=== PATIENT | male | born 1935 | race Caucasian/White ===

== ENCOUNTER 2018-07-02 01:25 | Inpatient (IN) | payer MEDICARE, MEDICAID ==
[~2018-07-02] VITALS: Ht 165.1 cm; Wt 90.8 kg
[2018-07-02] MEDS ORDERED: ONDANSETRON HCL 4MG/2ML INJ IV STA (03:55)
[2018-07-02] MEDS ORDERED: SODIUM CHLORIDE 0.9% 1,000 ML IV ONE (03:55)
[2018-07-02 04:18] LABS: CHLORIDE 105 mEq/L (98-107); HEMATOCRIT. 34.6 % (42.0-52.0); HEMOGLOBIN. 11.3 g/dL (14.0-18.0); MEAN PLATELET VOLUME 8.4 fl (7.4-10.4); PLATELET 295 x1000/uL (130-400); RED BLOOD CELL COUNT 3.89 mill/uL (4.7-6.1); RED CELL DISTRIBUTION WIDTH 13.5 % (11.6-14.6)
[2018-07-02] MEDS ORDERED: DEXTROSE 50% WATER 50ML SYRINGE IV ONE (04:45)
[2018-07-02 04:57] LABS: PLATELET ESTIMATE NORMAL
[2018-07-02] MEDS ORDERED: IOHEXOL-300 100 ML BOTTLE ONE (06:45)
[2018-07-02] MEDS ORDERED: LACTULOSE 20G/30ML UDC PO PRN (09:00)
[2018-07-02] MEDS ORDERED: SODIUM POLYSTYRENE SULFONATE 15 G/60 ML BOT PO NR (09:00)
[2018-07-02] MEDS ORDERED: ACETAMINOPHEN 325MG TABLET PO PRN (09:00)
[2018-07-02] MEDS ORDERED: ONDANSETRON HCL 4MG/2ML INJ IV PRN (09:00)
[2018-07-02] MEDS: DOCUSATE SODIUM 250MG CAPSULE PO SCH ×2 (10:15→11:58)
[2018-07-02 11:50] VITALS: BP 131/57
[2018-07-02] MEDS: CLOPIDOGREL 75MG TABLET PO SCH (11:58)
[2018-07-02 12:00] VITALS: BP 160/65
[2018-07-02] MEDS: BLOOD SUGAR DIAGNOSTIC STRIP TEST SCH ×3 (12:10→21:00)
[2018-07-02 16:00] VITALS: BP 108/42
[2018-07-02] MEDS: DEXT 5%/0.45% NACL 1000ML 1,000 ML IV SCH (19:02)
[2018-07-02 20:00] VITALS: BP 132/52
[2018-07-02] MEDS ORDERED: ZOLPIDEM TARTRATE 5MG TABLET PO PRN (23:00)
[2018-07-02] MEDS: TAMSULOSIN HCL 0.4MG SR CAPSULE PO SCH (23:54)
[2018-07-03] VITALS: BP 136/67
[2018-07-03 04:00] VITALS: BP 132/59
[2018-07-03] MEDS: BLOOD SUGAR DIAGNOSTIC STRIP TEST SCH ×3 (07:29→21:00)
[2018-07-03 07:36] LABS: BASOPHILS % 0.2 % (0.0-2.0); HEMATOCRIT. 30.4 % (42.0-52.0); HEMOGLOBIN. 10.3 g/dL (14.0-18.0); LYMPHOCYTES % 17.6 % (20.0-50.0); MEAN CORPUSCULAR HEMOGLOBIN 29.8 pg (28.0-32.0); MEAN CORPUSCULAR VOLUME 87.7 fL (80.0-94.0); MEAN PLATELET VOLUME 7.7 fl (7.4-10.4); MONOCYTES % 7.4 % (2.0-8.0); NEUTROPHILS % 73.8 % (40.0-76.0); PLATELET 269 x1000/uL (130-400); RED BLOOD CELL COUNT 3.47 mill/uL (4.7-6.1); RED CELL DISTRIBUTION WIDTH 13.5 % (11.6-14.6)
[2018-07-03 07:45] LABS: CHLORIDE 106 mEq/L (98-107)
[2018-07-03 08:00] VITALS: BP 115/48
[2018-07-03] MEDS: DOCUSATE SODIUM 250MG CAPSULE PO SCH (09:30)
[2018-07-03] MEDS: CLOPIDOGREL 75MG TABLET PO SCH (09:30)
[2018-07-03] MEDS ORDERED: NA PHOS,M-B/NA PHOS,DI-BA ENEMA 118ML PR PRN (11:45)
[2018-07-03 16:00] VITALS: BP 115/53
[2018-07-03 16:09] LABS: CLARITY URINE CLOUDY (CLEAR); COLOR URINE YELLOW (YELLOW); KETONES URINE NEGATIVE (NEGATIVE); LEUKOCYTE ESTERASE URINE NEGATIVE (NEGATIVE); NITRITE URINE POSITIVE (NEGATIVE); OCCULT BLOOD URINE 1+ (NEGATIVE); PROTEIN URINE TRACE (NEGATIVE); SPECIFIC GRAVITY URINE 1.027 (1.005-1.030)
[2018-07-03 20:00] VITALS: BP 119/58
[2018-07-03] MEDS: TAMSULOSIN HCL 0.4MG SR CAPSULE PO SCH (23:59)
[2018-07-04] VITALS (7 sets, daily range): BP systolic 114–149; BP diastolic 45–58
[2018-07-04] MEDS: BLOOD SUGAR DIAGNOSTIC STRIP TEST SCH ×4 (05:18→21:18)
[2018-07-04] MEDS: DEXT 5%/0.45% NACL 1000ML 1,000 ML IV SCH ×2 (05:56→13:30)
[2018-07-04] MEDS: CLOPIDOGREL 75MG TABLET PO SCH (08:20)
[2018-07-04] MEDS: DOCUSATE SODIUM 250MG CAPSULE PO SCH (08:22)
[2018-07-04] MEDS: TAMSULOSIN HCL 0.4MG SR CAPSULE PO SCH (21:18)
[2018-07-05 04:00] VITALS: BP 149/80
[2018-07-05] MEDS: BLOOD SUGAR DIAGNOSTIC STRIP TEST SCH ×4 (06:39→20:40)
[2018-07-05 08:00] VITALS: BP 133/48
[2018-07-05] MEDS: DOCUSATE SODIUM 250MG CAPSULE PO SCH (09:00)
[2018-07-05] MEDS: CLOPIDOGREL 75MG TABLET PO SCH (09:32)
[2018-07-05 12:00] VITALS: BP 142/62
[2018-07-05] MEDS ORDERED: DEXTROSE 50% WATER 50ML SYRINGE IV PRN (14:15)
[2018-07-05 16:00] VITALS: BP 123/61
[2018-07-05] MEDS: INSULIN LISPRO 100 UNITS/ML SUBCUT SCH ×2 (17:34→21:51)
[2018-07-05 20:00] VITALS: BP 117/53
[2018-07-05] MEDS: TAMSULOSIN HCL 0.4MG SR CAPSULE PO SCH (21:42)
[2018-07-06] VITALS: BP 128/57
[2018-07-06 04:00] VITALS: BP 122/57
[2018-07-06] MEDS: BLOOD SUGAR DIAGNOSTIC STRIP TEST SCH ×4 (06:27→20:35)
[2018-07-06] MEDS: INSULIN LISPRO 100 UNITS/ML SUBCUT SCH ×4 (06:42→21:00)
[2018-07-06 08:00] VITALS: BP 127/55
[2018-07-06] MEDS: CLOPIDOGREL 75MG TABLET PO SCH (09:00)
[2018-07-06] MEDS: DOCUSATE SODIUM 250MG CAPSULE PO SCH (09:00)
[2018-07-06 12:00] VITALS: BP 110/50
[2018-07-06 16:00] VITALS: BP 128/55
[2018-07-06 20:00] VITALS: BP 139/63
[2018-07-06] MEDS: TAMSULOSIN HCL 0.4MG SR CAPSULE PO SCH (20:34)
[2018-07-07 05:59] VITALS: BP 107/50
[2018-07-07] MEDS: BLOOD SUGAR DIAGNOSTIC STRIP TEST SCH ×4 (06:33→21:07)
[2018-07-07] MEDS: INSULIN LISPRO 100 UNITS/ML SUBCUT SCH ×4 (06:39→21:14)
[2018-07-07 08:00] VITALS: BP 110/55
[2018-07-07] MEDS: DOCUSATE SODIUM 250MG CAPSULE PO SCH (08:26)
[2018-07-07] MEDS: CLOPIDOGREL 75MG TABLET PO SCH (08:26)
[2018-07-07 12:00] VITALS: BP 133/49
[2018-07-07 16:00] VITALS: BP_SYST 116; BP_DIAS 59; BP_DIAS 89
[2018-07-07 20:00] VITALS: BP 139/57
[2018-07-07] MEDS: TAMSULOSIN HCL 0.4MG SR CAPSULE PO SCH (21:16)
[2018-07-08] VITALS (7 sets, daily range): BP systolic 107–136; BP diastolic 52–56
[2018-07-08 06:39] LABS: BASOPHILS % 0.3 % (0.0-2.0); CHLORIDE 111 mEq/L (98-107); EOSINOPHILS % 1.9 % (0.0-5.0); HEMOGLOBIN. 9.4 g/dL (14.0-18.0); LYMPHOCYTES % 16.8 % (20.0-50.0); MEAN CORPUSCULAR HEMOGLOBIN 29.8 pg (28.0-32.0); MEAN CORPUSCULAR VOLUME 88.5 fL (80.0-94.0); MEAN PLATELET VOLUME 7.7 fl (7.4-10.4); MONOCYTES % 6.1 % (2.0-8.0); NEUTROPHILS % 74.9 % (40.0-76.0); PLATELET 339 x1000/uL (130-400); RED BLOOD CELL COUNT 3.16 mill/uL (4.7-6.1); RED CELL DISTRIBUTION WIDTH 13.6 % (11.6-14.6)
[2018-07-08] MEDS: BLOOD SUGAR DIAGNOSTIC STRIP TEST SCH ×3 (06:46→17:21)
[2018-07-08] MEDS: INSULIN LISPRO 100 UNITS/ML SUBCUT SCH ×4 (06:47→17:21)
[2018-07-08] MEDS: CLOPIDOGREL 75MG TABLET PO SCH (09:32)
[2018-07-08] MEDS: DOCUSATE SODIUM 250MG CAPSULE PO SCH (09:32)
== END 2018-07-08 22:15 | DRG 388 ==
LOC: ER 01:25 → 8WST 01:26 → EDBEDREQ 05:46 → EDBEDREQTM 05:46 → ENRESERV 07:41
PROVIDERS: ADMIT Internal Medicine; ATTEND Internal Medicine
DX: K56.41 Fecal impaction (principal); G93.41 Metabolic encephalopathy; N13.8 Other obstructive and reflux uropathy; E11.649 Type 2 diabetes mellitus with hypoglycemia without coma; E87.5 Hyperkalemia; I10 Essential (primary) hypertension; E66.9 Obesity, unspecified; Z68.33 Body mass index [BMI] 33.0-33.9, adult; N40.1 Benign prostatic hyperplasia with lower urinary tract symptoms; F03.90 Unspecified dementia, unspecified severity, without behavioral disturbance, psychotic disturbance, mood disturbance, and anxiety; D64.9 Anemia, unspecified; N28.1 Cyst of kidney, acquired; K57.90 Diverticulosis of intestine, part unspecified, without perforation or abscess without bleeding; N43.3 Hydrocele, unspecified; I25.2 Old myocardial infarction; Z86.73 Personal history of transient ischemic attack (TIA), and cerebral infarction without residual deficits; Z79.02 Long term (current) use of antithrombotics/antiplatelets; Z90.49 Acquired absence of other specified parts of digestive tract
CPT/HCPCS: 36415; 71045; 73130; 74177; 80048; 80061; 82962; 83036; 83605; 84484; 93005; 93306; 96374; 97162; 99291; J1815; J2405; J7030; Q9967

== ENCOUNTER 2020-08-23 11:35 | Inpatient (IN) | payer MEDICARE, MEDICAID ==
[~2020-08-23] VITALS: Ht 160 cm; Wt 93.7 kg
[~2020-08-23 11:35] MED LIST: CLON-457 PO; CLOP-31 PO; FINA1TAB18 PO; FURO20TA4 PO; GABA-529 PO; LINA5TAB PO; LOSA100T32 PO; TAMS-11 PO
[2020-08-23] MEDS ORDERED: SODIUM CHLORIDE 0.9% 1,000 ML IV ONE (11:45)
[2020-08-23 11:59] LABS: BASOPHILS % 1.3 % (0.0-2.0); EOSINOPHILS % 0.5 % (0.0-5.0); HEMATOCRIT. 34.6 % (42.0-52.0); HEMOGLOBIN. 11.5 g/dL (14.0-18.0); LYMPHOCYTES % 20.2 % (20.0-50.0); MEAN CORPUSCULAR HEMOGLOBIN 30.6 pg (28.0-32.0); MEAN CORPUSCULAR VOLUME 91.7 fL (80.0-94.0); MEAN PLATELET VOLUME 8.3 fl (7.4-10.4); MONOCYTES % 4.5 % (2.0-8.0); NEUTROPHILS % 73.5 % (40.0-76.0); PLATELET 247 x1000/uL (130-400); RED BLOOD CELL COUNT 3.77 mill/uL (4.7-6.1); RED CELL DISTRIBUTION WIDTH 13.3 % (11.6-14.6)
[2020-08-23 12:05] LABS: CHLORIDE 105 mEq/L (98-107)
[2020-08-23 12:09] LABS: ETHANOL BLOOD < 10 mg/dL
[2020-08-23 12:16] LABS: CREATINE KINASE 253 IU/L (39-308); PROTHROMBIN TIME 10.3 sec (9.6-11.0)
[2020-08-23 12:32] LABS: BG CARBOXYHEMOGLOBIN 0.3 % (0.5-1.5); BG DEOXYHEMOGLOBIN 2.7 % (0.0-5.0); BG FRACTION INSPIRED OXYGEN 21; BG HCO3 ACT 11.5 mmol/L (22.0-26.0); BG METHEMOGLOBIN 0.2 % (0.0-1.5); BG OXYGEN SATURATION 97.3 % (92.0-98.5); BG OXYHEMOGLOBIN 96.8 % (94.0-97.0); BG PCO2 29.2 mmHg (35.0-45.0); BG PH 7.213 (7.350-7.450); BG PO2 113.2 mmHg (75.0-100.0); BG SAMPLE SITE RIGHT RADIAL; BG TOTAL HEMOGLOBIN 10.9 g/dL (12.0-18.0); BG VENT MODE ROOM AIR
[2020-08-23] MEDS ORDERED: FUROSEMIDE 100MG/10ML VIAL IV NR (13:01)
[2020-08-23] MEDS ORDERED: INSULIN REGULAR (HUMULIN R) 300UNITS/3ML VIAL IV NR (13:15)
[2020-08-23] MEDS ORDERED: SODIUM POLYSTYRENE SULFONATE 15 G/60 ML BOT PO NR (13:15)
[2020-08-23] MEDS ORDERED: SODIUM BICARBONATE 8.4% 10MEQ/10ML SYR IV NR (13:15)
[2020-08-23] MEDS ORDERED: DEXTROSE 50% WATER 50ML SYRINGE IV NR (13:15)
[2020-08-23] MEDS ORDERED: CALCIUM GLUCONATE 100MG/ML 10ML VIAL IV ONE (13:15)
[2020-08-23] MEDS ORDERED: CALCIUM GLUCONATE 1GM PREMIX 50 ML IV NR (13:15)
[2020-08-23] MEDS ORDERED: SODIUM BICARBONATE 8.4% 1 MEQ/ML 50ML SYR IV NR (13:30)
[2020-08-23] MEDS: THIAMINE HCL 100MG TABLET PO SCH (15:00)
[2020-08-23] MEDS ORDERED: LORAZEPAM 2MG/ML CPJ IV PRN (15:00)
[2020-08-23] MEDS ORDERED: HYDROCODONE/ACETAMINOPHEN 5/325MG TABLET PO PRN (15:00)
[2020-08-23] MEDS: SODIUM CHLORIDE 0.9% 1,000 ML IV SCH ×2 (15:00→20:46)
[2020-08-23] MEDS ORDERED: MORPHINE SULFATE 2 MG/ML CPJ (NOT FOR IM USE) IV PRN (15:00)
[2020-08-23] MEDS ORDERED: ONDANSETRON HCL 4MG/2ML INJ IV PRN (15:00)
[2020-08-23] MEDS: ENOXAPARIN 40MG/0.4ML SYR SUBCUT SCH (15:30)
[2020-08-23 17:37] VITALS: BP 112/88
[2020-08-23] MEDS ORDERED: FOLI-43 MT (17:55)
[2020-08-23] MEDS ORDERED: HYDR100T26 PO (17:55)
[2020-08-23] MEDS ORDERED: AMLO5TAB88 PO (17:55)
[2020-08-23] MEDS ORDERED: INSU100I28 SQ ×2 (17:55)
[2020-08-23 20:00] VITALS: BP 165/118
[2020-08-23] MEDS: CLONIDINE 0.1MG TABLET PO PRN (20:46)
[2020-08-24] VITALS (8 sets, daily range): BP systolic 62–128; BP diastolic 29–75
[2020-08-24] MEDS ORDERED: DEXTROSE 50% WATER 50ML SYRINGE IV PRN
[2020-08-24 00:38] LABS: PHOSPHORUS 10.4 mg/dL (2.5-4.9)
[2020-08-24] MEDS: INSULIN LISPRO 100 UNITS/ML SUBCUT SCH ×4 (06:04→21:00)
[2020-08-24] MEDS: BLOOD SUGAR DIAGNOSTIC STRIP TEST SCH ×4 (06:04→20:49)
[2020-08-24 07:18] LABS: BASOPHILS % 0.5 % (0.0-2.0); HEMATOCRIT. 29.8 % (42.0-52.0); HEMOGLOBIN. 10.3 g/dL (14.0-18.0); LYMPHOCYTES % 15.1 % (20.0-50.0); MEAN CORPUSCULAR HEMOGLOBIN 31.1 pg (28.0-32.0); MEAN CORPUSCULAR VOLUME 89.9 fL (80.0-94.0); MEAN PLATELET VOLUME 8.5 fl (7.4-10.4); MONOCYTES % 7.1 % (2.0-8.0); NEUTROPHILS % 76.3 % (40.0-76.0); PLATELET 228 x1000/uL (130-400); RED BLOOD CELL COUNT 3.32 mill/uL (4.7-6.1); RED CELL DISTRIBUTION WIDTH 13.5 % (11.6-14.6)
[2020-08-24 07:36] LABS: PHOSPHORUS 9.1 mg/dL (2.5-4.9)
[2020-08-24] MEDS: THIAMINE HCL 100MG TABLET PO SCH (09:03)
[2020-08-24] MEDS ORDERED: SODIUM CHLORIDE 0.9% 1000ML BAG (SEPSIS BOLUS) IV ONE (09:45)
[2020-08-24] MEDS: MIDODRINE HCL 5MG TABLET PO SCH ×4 (09:46→21:07)
[2020-08-24] MEDS: SODIUM CHLORIDE 0.9% 1,000 ML IV SCH ×2 (10:58→20:49)
[2020-08-24] MEDS: ENOXAPARIN 40MG/0.4ML SYR SUBCUT SCH (14:38)
[2020-08-24] MEDS: ENOXAPARIN 30MG/0.3ML SYR SUBCUT SCH (15:00)
[2020-08-25] VITALS (12 sets, daily range): BP systolic 90–121; BP diastolic 42–75
[2020-08-25 06:09] LABS: BASOPHILS % 0.4 % (0.0-2.0); EOSINOPHILS % 0.7 % (0.0-5.0); HEMATOCRIT. 31.8 % (42.0-52.0); HEMOGLOBIN. 10.5 g/dL (14.0-18.0); LYMPHOCYTES % 15.8 % (20.0-50.0); MEAN CORPUSCULAR HEMOGLOBIN 30.3 pg (28.0-32.0); MEAN CORPUSCULAR VOLUME 91.6 fL (80.0-94.0); MEAN PLATELET VOLUME 8.6 fl (7.4-10.4); MONOCYTES % 7.5 % (2.0-8.0); NEUTROPHILS % 75.6 % (40.0-76.0); PLATELET 244 x1000/uL (130-400); RED BLOOD CELL COUNT 3.48 mill/uL (4.7-6.1); RED CELL DISTRIBUTION WIDTH 13.4 % (11.6-14.6)
[2020-08-25] MEDS: MIDODRINE HCL 5MG TABLET PO SCH ×3 (06:46→21:01)
[2020-08-25] MEDS: BLOOD SUGAR DIAGNOSTIC STRIP TEST SCH ×4 (07:30→20:44)
[2020-08-25] MEDS: INSULIN LISPRO 100 UNITS/ML SUBCUT SCH ×4 (08:00→20:44)
[2020-08-25] MEDS ORDERED: SODIUM CHLORIDE 0.9% 250 ML IV SCH (08:00)
[2020-08-25] MEDS: THIAMINE HCL 100MG TABLET PO SCH (09:30)
[2020-08-25] MEDS: CALCIUM ACETATE 667MG CAPSULE PO SCH ×3 (09:30→17:31)
[2020-08-25] MEDS: SODIUM CHLORIDE 0.9% 1,000 ML IV SCH ×2 (09:30→17:32)
[2020-08-25] MEDS: TAMSULOSIN HCL 0.4MG SR CAPSULE PO SCH (13:09)
[2020-08-25] MEDS ORDERED: HEPARIN 1000 UNITS/ML 10ML ONE ×2 (13:32→15:03)
[2020-08-25] MEDS ORDERED: LIDOCAINE HCL 1% 20ML VIAL (Pyxis) INJ ONE ×2 (13:32→14:34)
[2020-08-25] MEDS: ENOXAPARIN 30MG/0.3ML SYR SUBCUT SCH (15:00)
[2020-08-25] MEDS ORDERED: IOHEXOL-300 50 ML BOTTLE IV ONE (15:08)
[2020-08-26] VITALS (12 sets, daily range): BP systolic 102–133; BP diastolic 36–91
[2020-08-26] MEDS: SODIUM CHLORIDE 0.9% 1,000 ML IV SCH ×3 (03:00→23:00)
[2020-08-26] MEDS: MIDODRINE HCL 5MG TABLET PO SCH ×3 (06:06→21:07)
[2020-08-26] MEDS: BLOOD SUGAR DIAGNOSTIC STRIP TEST SCH ×4 (07:30→21:22)
[2020-08-26 08:08] LABS: BASOPHILS % 0.5 % (0.0-2.0); EOSINOPHILS % 1.1 % (0.0-5.0); HEMATOCRIT. 30.5 % (42.0-52.0); HEMOGLOBIN. 10.3 g/dL (14.0-18.0); LYMPHOCYTES % 18.3 % (20.0-50.0); MEAN CORPUSCULAR HEMOGLOBIN 30.1 pg (28.0-32.0); MEAN CORPUSCULAR VOLUME 89.5 fL (80.0-94.0); MEAN PLATELET VOLUME 8.4 fl (7.4-10.4); MONOCYTES % 9.1 % (2.0-8.0); PLATELET 220 x1000/uL (130-400); RED BLOOD CELL COUNT 3.41 mill/uL (4.7-6.1)
[2020-08-26] MEDS: INSULIN LISPRO 100 UNITS/ML SUBCUT SCH ×4 (09:36→21:00)
[2020-08-26] MEDS: THIAMINE HCL 100MG TABLET PO SCH (09:56)
[2020-08-26] MEDS: CALCIUM ACETATE 667MG CAPSULE PO SCH ×3 (09:56→15:23)
[2020-08-26] MEDS: TAMSULOSIN HCL 0.4MG SR CAPSULE PO SCH (09:57)
[2020-08-26] MEDS ORDERED: VANCOMYCIN 2,000 MG in DEXT 5% WATER 500 ML IV SCH (14:00)
[2020-08-26] MEDS: ENOXAPARIN 30MG/0.3ML SYR SUBCUT SCH (15:00)
[2020-08-26 22:25] LABS: HEPATITIS B SURFACE ANTIGEN NEGATIVE
[2020-08-26 22:55] LABS: HEPATITIS A AB IGM NEGATIVE (NEGATIVE)
[2020-08-27] VITALS (11 sets, daily range): BP systolic 101–139; BP diastolic 48–99
[2020-08-27] MEDS: SODIUM CHLORIDE 0.9% 1,000 ML IV SCH (04:38)
[2020-08-27] MEDS: MIDODRINE HCL 5MG TABLET PO SCH ×4 (05:42→20:44)
[2020-08-27 05:52] LABS: BASOPHILS % 0.4 % (0.0-2.0); EOSINOPHILS % 1.9 % (0.0-5.0); HEMATOCRIT. 28.7 % (42.0-52.0); HEMOGLOBIN. 9.7 g/dL (14.0-18.0); LYMPHOCYTES % 22.4 % (20.0-50.0); MEAN CORPUSCULAR HEMOGLOBIN 30.3 pg (28.0-32.0); MEAN CORPUSCULAR VOLUME 89.5 fL (80.0-94.0); MEAN PLATELET VOLUME 8.4 fl (7.4-10.4); MONOCYTES % 8.7 % (2.0-8.0); NEUTROPHILS % 66.6 % (40.0-76.0); PLATELET 209 x1000/uL (130-400); RED BLOOD CELL COUNT 3.21 mill/uL (4.7-6.1); RED CELL DISTRIBUTION WIDTH 13.4 % (11.6-14.6)
[2020-08-27] MEDS: BLOOD SUGAR DIAGNOSTIC STRIP TEST SCH ×4 (07:30→20:52)
[2020-08-27] MEDS: INSULIN LISPRO 100 UNITS/ML SUBCUT SCH ×4 (08:00→20:52)
[2020-08-27] MEDS: TAMSULOSIN HCL 0.4MG SR CAPSULE PO SCH (08:50)
[2020-08-27] MEDS: THIAMINE HCL 100MG TABLET PO SCH (08:50)
[2020-08-27] MEDS: CALCIUM ACETATE 667MG CAPSULE PO SCH ×3 (08:50→17:16)
[2020-08-27] MEDS: ENOXAPARIN 30MG/0.3ML SYR SUBCUT SCH (14:11)
[2020-08-28] VITALS (12 sets, daily range): BP systolic 116–154; BP diastolic 40–74
[2020-08-28] MEDS: ACETAMINOPHEN 650MG/20.3ML UDC GT PRN (01:37)
[2020-08-28] MEDS: SODIUM CHLORIDE 0.9% 1,000 ML IV SCH ×3 (05:00→12:55)
[2020-08-28] MEDS: MIDODRINE HCL 5MG TABLET PO SCH ×3 (05:22→21:51)
[2020-08-28 06:26] LABS: HEMATOCRIT. 28.2 % (42.0-52.0); HEMOGLOBIN. 9.5 g/dL (14.0-18.0); MEAN CORPUSCULAR HEMOGLOBIN 30.1 pg (28.0-32.0); MEAN CORPUSCULAR VOLUME 89.3 fL (80.0-94.0); MEAN PLATELET VOLUME 7.9 fl (7.4-10.4); PLATELET 212 x1000/uL (130-400); RED BLOOD CELL COUNT 3.15 mill/uL (4.7-6.1); RED CELL DISTRIBUTION WIDTH 12.8 % (11.6-14.6)
[2020-08-28] MEDS: BLOOD SUGAR DIAGNOSTIC STRIP TEST SCH ×4 (07:30→21:00)
[2020-08-28] MEDS: INSULIN LISPRO 100 UNITS/ML SUBCUT SCH ×4 (08:00→21:00)
[2020-08-28] MEDS: TAMSULOSIN HCL 0.4MG SR CAPSULE PO SCH (08:54)
[2020-08-28] MEDS: CALCIUM ACETATE 667MG CAPSULE PO SCH ×3 (08:54→16:27)
[2020-08-28] MEDS: THIAMINE HCL 100MG TABLET PO SCH (08:54)
[2020-08-28] MEDS ORDERED: VANCOMYCIN 750 MG PREMIX 150 ML IV NR (12:00)
[2020-08-28 14:00] LABS: PLATELET ESTIMATE NORMAL
[2020-08-28] MEDS: ENOXAPARIN 30MG/0.3ML SYR SUBCUT SCH (15:42)
[2020-08-28] MEDS ORDERED: LORAZEPAM 2MG/ML CPJ IV PRN (22:45)
[2020-08-29] VITALS (14 sets, daily range): BP systolic 101–164; BP diastolic 34–86
[2020-08-29] MEDS: SODIUM CHLORIDE 0.9% 1,000 ML IV SCH ×2 (01:00→11:00)
[2020-08-29] MEDS: MIDODRINE HCL 5MG TABLET PO SCH ×3 (05:36→22:00)
[2020-08-29] MEDS: ACETAMINOPHEN 650MG/20.3ML UDC GT PRN (06:30)
[2020-08-29] MEDS: BLOOD SUGAR DIAGNOSTIC STRIP TEST SCH ×4 (07:30→21:00)
[2020-08-29] MEDS: INSULIN LISPRO 100 UNITS/ML SUBCUT SCH ×4 (08:00→21:00)
[2020-08-29 08:31] LABS: BASOPHILS % 0.4 % (0.0-2.0); EOSINOPHILS % 0.3 % (0.0-5.0); HEMOGLOBIN. 9.7 g/dL (14.0-18.0); LYMPHOCYTES % 7.3 % (20.0-50.0); MEAN CORPUSCULAR HEMOGLOBIN 30.2 pg (28.0-32.0); MEAN CORPUSCULAR VOLUME 93.1 fL (80.0-94.0); MEAN PLATELET VOLUME 8.4 fl (7.4-10.4); MONOCYTES % 5.9 % (2.0-8.0); NEUTROPHILS % 86.1 % (40.0-76.0); PLATELET 199 x1000/uL (130-400); RED BLOOD CELL COUNT 3.22 mill/uL (4.7-6.1); RED CELL DISTRIBUTION WIDTH 13.4 % (11.6-14.6)
[2020-08-29] MEDS: CALCIUM ACETATE 667MG CAPSULE PO SCH ×3 (08:34→16:57)
[2020-08-29] MEDS: THIAMINE HCL 100MG TABLET PO SCH (08:35)
[2020-08-29] MEDS: TAMSULOSIN HCL 0.4MG SR CAPSULE PO SCH (08:35)
[2020-08-29] MEDS ORDERED: HEPARIN SODIUM 1,000 UNIT/1ML VIAL IV NR (16:30)
[2020-08-29] MEDS: ENOXAPARIN 30MG/0.3ML SYR SUBCUT SCH (16:39)
[2020-08-30] VITALS (7 sets, daily range): BP systolic 129–143; BP diastolic 37–66
[2020-08-30] MEDS: BLOOD SUGAR DIAGNOSTIC STRIP TEST SCH ×4 (06:34→21:34)
[2020-08-30] MEDS: MIDODRINE HCL 5MG TABLET PO SCH ×3 (06:34→21:39)
[2020-08-30] MEDS: INSULIN LISPRO 100 UNITS/ML SUBCUT SCH ×4 (06:47→21:40)
[2020-08-30] MEDS: CALCIUM ACETATE 667MG CAPSULE PO SCH ×3 (08:24→17:59)
[2020-08-30] MEDS: THIAMINE HCL 100MG TABLET PO SCH (08:24)
[2020-08-30] MEDS: TAMSULOSIN HCL 0.4MG SR CAPSULE PO SCH (08:25)
[2020-08-30 09:18] LABS: BASOPHILS % 0.4 % (0.0-2.0); EOSINOPHILS % 0.6 % (0.0-5.0); HEMATOCRIT. 28.7 % (42.0-52.0); HEMOGLOBIN. 9.4 g/dL (14.0-18.0); LYMPHOCYTES % 8.4 % (20.0-50.0); MEAN CORPUSCULAR HEMOGLOBIN 29.8 pg (28.0-32.0); MEAN CORPUSCULAR VOLUME 90.8 fL (80.0-94.0); MEAN PLATELET VOLUME 8.2 fl (7.4-10.4); MONOCYTES % 7.3 % (2.0-8.0); NEUTROPHILS % 83.3 % (40.0-76.0); PLATELET 234 x1000/uL (130-400); RED BLOOD CELL COUNT 3.16 mill/uL (4.7-6.1); RED CELL DISTRIBUTION WIDTH 13.1 % (11.6-14.6)
[2020-08-30] MEDS: ENOXAPARIN 30MG/0.3ML SYR SUBCUT SCH (14:10)
[2020-08-30] MEDS ORDERED: POTASSIUM CHLORIDE 20MEQ TABLET SR PO NR (14:15)
[2020-08-30] MEDS ORDERED: VANCOMYCIN 500 MG PREMIX 100 ML IV NR (18:00)
[2020-08-31] VITALS: BP 134/81
[2020-08-31 04:00] VITALS: BP 128/45
[2020-08-31] MEDS: MIDODRINE HCL 5MG TABLET PO SCH ×3 (05:12→21:31)
[2020-08-31] MEDS: INSULIN LISPRO 100 UNITS/ML SUBCUT SCH ×4 (05:12→21:00)
[2020-08-31] MEDS: BLOOD SUGAR DIAGNOSTIC STRIP TEST SCH ×4 (05:12→21:37)
[2020-08-31 08:00] VITALS: BP 136/56
[2020-08-31 08:43] LABS: BASOPHILS % 0.4 % (0.0-2.0); EOSINOPHILS % 3.5 % (0.0-5.0); HEMATOCRIT. 29.7 % (42.0-52.0); HEMOGLOBIN. 9.9 g/dL (14.0-18.0); LYMPHOCYTES % 12.9 % (20.0-50.0); MEAN CORPUSCULAR HEMOGLOBIN 30.2 pg (28.0-32.0); MEAN CORPUSCULAR VOLUME 90.2 fL (80.0-94.0); MEAN PLATELET VOLUME 7.6 fl (7.4-10.4); MONOCYTES % 10.2 % (2.0-8.0); PLATELET 249 x1000/uL (130-400); RED CELL DISTRIBUTION WIDTH 12.9 % (11.6-14.6)
[2020-08-31] MEDS: CALCIUM ACETATE 667MG CAPSULE PO SCH ×3 (10:20→17:28)
[2020-08-31] MEDS: TAMSULOSIN HCL 0.4MG SR CAPSULE PO SCH (10:20)
[2020-08-31] MEDS: THIAMINE HCL 100MG TABLET PO SCH (10:21)
[2020-08-31] MEDS: ENOXAPARIN 40MG/0.4ML SYR SUBCUT SCH (10:21)
[2020-08-31 12:00] VITALS: BP 114/31
[2020-08-31 16:00] VITALS: BP 154/64
[2020-08-31 20:00] VITALS: BP 143/53
[2020-09-01] VITALS (18 sets, daily range): BP systolic 102–188; BP diastolic 43–82
[2020-09-01] MEDS: BLOOD SUGAR DIAGNOSTIC STRIP TEST SCH ×4 (05:35→20:59)
[2020-09-01] MEDS: INSULIN LISPRO 100 UNITS/ML SUBCUT SCH ×4 (05:35→21:04)
[2020-09-01] MEDS: MIDODRINE HCL 5MG TABLET PO SCH (05:36)
[2020-09-01] MEDS: TAMSULOSIN HCL 0.4MG SR CAPSULE PO SCH (08:13)
[2020-09-01] MEDS: CALCIUM ACETATE 667MG CAPSULE PO SCH ×3 (08:14→18:20)
[2020-09-01] MEDS: THIAMINE HCL 100MG TABLET PO SCH (08:14)
[2020-09-01] MEDS: ENOXAPARIN 40MG/0.4ML SYR SUBCUT SCH (08:16)
[2020-09-01 08:18] LABS: BASOPHILS % 0.2 % (0.0-2.0); EOSINOPHILS % 3.8 % (0.0-5.0); HEMATOCRIT. 28.5 % (42.0-52.0); HEMOGLOBIN. 9.5 g/dL (14.0-18.0); LYMPHOCYTES % 14.9 % (20.0-50.0); MEAN CORPUSCULAR HEMOGLOBIN 30.1 pg (28.0-32.0); MEAN CORPUSCULAR VOLUME 90.3 fL (80.0-94.0); MEAN PLATELET VOLUME 7.8 fl (7.4-10.4); MONOCYTES % 8.8 % (2.0-8.0); NEUTROPHILS % 72.3 % (40.0-76.0); PLATELET 219 x1000/uL (130-400); RED BLOOD CELL COUNT 3.16 mill/uL (4.7-6.1)
[2020-09-01] MEDS ORDERED: LIDOCAINE HCL 1% 20ML VIAL (Pyxis) INJ ONE (09:04)
[2020-09-01] MEDS ORDERED: FENTANYL CITRATE/PF 50MCG/ML 2ML VIAL ONE (13:04)
[2020-09-01] MEDS ORDERED: FENTANYL CITRATE/PF 50MCG/ML 2ML VIAL IV SCH (13:15)
[2020-09-01] MEDS: AMLODIPINE 10MG TABLET PO SCH (14:24)
[2020-09-02] VITALS: BP 94/61
[2020-09-02 04:00] VITALS: BP 146/52
[2020-09-02] MEDS: ACETAMINOPHEN 650MG/20.3ML UDC GT PRN (05:47)
[2020-09-02] MEDS: BLOOD SUGAR DIAGNOSTIC STRIP TEST SCH ×4 (07:10→20:54)
[2020-09-02] MEDS: INSULIN LISPRO 100 UNITS/ML SUBCUT SCH ×4 (07:40→20:53)
[2020-09-02] MEDS: CALCIUM ACETATE 667MG CAPSULE PO SCH ×3 (09:00→17:00)
[2020-09-02] MEDS: ENOXAPARIN 40MG/0.4ML SYR SUBCUT SCH (10:10)
[2020-09-02] MEDS: THIAMINE HCL 100MG TABLET PO SCH (10:10)
[2020-09-02] MEDS: TAMSULOSIN HCL 0.4MG SR CAPSULE PO SCH (10:11)
[2020-09-02] MEDS: AMLODIPINE 10MG TABLET PO SCH (10:12)
[2020-09-02 12:00] VITALS: BP 115/58
[2020-09-02 16:00] VITALS: BP 144/47
[2020-09-02 16:17] LABS: BASOPHILS % 0.3 % (0.0-2.0); EOSINOPHILS % 3.2 % (0.0-5.0); HEMATOCRIT. 29.6 % (42.0-52.0); HEMOGLOBIN. 9.7 g/dL (14.0-18.0); LYMPHOCYTES % 17.9 % (20.0-50.0); MEAN CORPUSCULAR HEMOGLOBIN 29.5 pg (28.0-32.0); MEAN CORPUSCULAR VOLUME 90.4 fL (80.0-94.0); MEAN PLATELET VOLUME 7.5 fl (7.4-10.4); MONOCYTES % 7.4 % (2.0-8.0); NEUTROPHILS % 71.2 % (40.0-76.0); PLATELET 233 x1000/uL (130-400); RED BLOOD CELL COUNT 3.28 mill/uL (4.7-6.1); RED CELL DISTRIBUTION WIDTH 12.8 % (11.6-14.6)
[2020-09-02 20:00] VITALS: BP 115/34
[2020-09-03] VITALS: BP 134/25
[2020-09-03 04:00] VITALS: BP 130/35
[2020-09-03] MEDS: BLOOD SUGAR DIAGNOSTIC STRIP TEST SCH ×4 (06:15→21:00)
[2020-09-03] MEDS: INSULIN LISPRO 100 UNITS/ML SUBCUT SCH ×4 (06:15→21:00)
[2020-09-03 08:00] VITALS: BP 163/60
[2020-09-03] MEDS: CALCIUM ACETATE 667MG CAPSULE PO SCH ×3 (08:44→17:58)
[2020-09-03] MEDS: TAMSULOSIN HCL 0.4MG SR CAPSULE PO SCH (08:44)
[2020-09-03] MEDS: AMLODIPINE 10MG TABLET PO SCH (08:44)
[2020-09-03] MEDS: ENOXAPARIN 40MG/0.4ML SYR SUBCUT SCH (08:45)
[2020-09-03] MEDS: THIAMINE HCL 100MG TABLET PO SCH (08:45)
[2020-09-03 12:04] VITALS: BP 126/50
[2020-09-03 15:59] VITALS: BP 130/59
[2020-09-03 20:00] VITALS: BP 139/45
[2020-09-04] VITALS: BP 157/55
[2020-09-04 04:00] VITALS: BP 152/54
[2020-09-04] MEDS: BLOOD SUGAR DIAGNOSTIC STRIP TEST SCH ×4 (06:33→21:00)
[2020-09-04] MEDS: INSULIN LISPRO 100 UNITS/ML SUBCUT SCH ×4 (06:33→21:47)
[2020-09-04] MEDS: ENOXAPARIN 40MG/0.4ML SYR SUBCUT SCH (08:46)
[2020-09-04] MEDS: THIAMINE HCL 100MG TABLET PO SCH (08:46)
[2020-09-04] MEDS: AMLODIPINE 10MG TABLET PO SCH (08:46)
[2020-09-04] MEDS: CALCIUM ACETATE 667MG CAPSULE PO SCH ×3 (08:46→17:10)
[2020-09-04] MEDS: TAMSULOSIN HCL 0.4MG SR CAPSULE PO SCH (08:47)
[2020-09-04 08:58] VITALS: BP 143/46
[2020-09-04 11:45] VITALS: BP 155/54
[2020-09-04 13:49] LABS: BASOPHILS % 0.5 % (0.0-2.0); EOSINOPHILS % 3.3 % (0.0-5.0); HEMATOCRIT. 27.1 % (42.0-52.0); HEMOGLOBIN. 9.2 g/dL (14.0-18.0); LYMPHOCYTES % 15.9 % (20.0-50.0); MEAN CORPUSCULAR HEMOGLOBIN 30.4 pg (28.0-32.0); MEAN PLATELET VOLUME 7.9 fl (7.4-10.4); MONOCYTES % 4.9 % (2.0-8.0); NEUTROPHILS % 75.4 % (40.0-76.0); PLATELET 250 x1000/uL (130-400); RED BLOOD CELL COUNT 3.04 mill/uL (4.7-6.1); RED CELL DISTRIBUTION WIDTH 12.5 % (11.6-14.6)
[2020-09-04 16:01] VITALS: BP 149/60
[2020-09-04 20:00] VITALS: BP 141/57
[2020-09-05] VITALS (7 sets, daily range): BP systolic 149–180; BP diastolic 44–92
[2020-09-05] MEDS: CLONIDINE 0.1MG TABLET PO PRN ×2 (05:36→21:29)
[2020-09-05] MEDS: INSULIN LISPRO 100 UNITS/ML SUBCUT SCH ×4 (06:30→22:00)
[2020-09-05] MEDS: BLOOD SUGAR DIAGNOSTIC STRIP TEST SCH ×4 (06:30→22:00)
[2020-09-05] MEDS: ACETAMINOPHEN 650MG/20.3ML UDC GT PRN (10:19)
[2020-09-05] MEDS: TAMSULOSIN HCL 0.4MG SR CAPSULE PO SCH (10:19)
[2020-09-05] MEDS: THIAMINE HCL 100MG TABLET PO SCH (10:20)
[2020-09-05] MEDS: CALCIUM ACETATE 667MG CAPSULE PO SCH ×3 (10:20→17:29)
[2020-09-05] MEDS: AMLODIPINE 10MG TABLET PO SCH (10:20)
[2020-09-05] MEDS: ENOXAPARIN 40MG/0.4ML SYR SUBCUT SCH (10:20)
[2020-09-05] MEDS ORDERED: POTASSIUM CHLORIDE 20MEQ TABLET SR PO NR (13:45)
[2020-09-05 19:49] LABS: CLARITY URINE CLOUDY (CLEAR); COLOR URINE YELLOW (YELLOW); KETONES URINE NEGATIVE (NEGATIVE); LEUKOCYTE ESTERASE URINE 3+ (NEGATIVE); NITRITE URINE NEGATIVE (NEGATIVE); OCCULT BLOOD URINE TRACE (NEGATIVE); PROTEIN URINE 2+ (NEGATIVE); SPECIFIC GRAVITY URINE 1.014 (1.005-1.030); UROBILINOGEN URINE 0.2 E.U./dL (0.2-1.0)
[2020-09-06] VITALS: BP 145/77
[2020-09-06 04:00] VITALS: BP 131/49
[2020-09-06 06:26] LABS: BASOPHILS % 0.5 % (0.0-2.0); EOSINOPHILS % 3.5 % (0.0-5.0); HEMATOCRIT. 27.4 % (42.0-52.0); HEMOGLOBIN. 9.1 g/dL (14.0-18.0); LYMPHOCYTES % 16.8 % (20.0-50.0); MEAN CORPUSCULAR HEMOGLOBIN 29.7 pg (28.0-32.0); MEAN CORPUSCULAR VOLUME 89.4 fL (80.0-94.0); MONOCYTES % 5.5 % (2.0-8.0); NEUTROPHILS % 73.7 % (40.0-76.0); PLATELET 255 x1000/uL (130-400); RED BLOOD CELL COUNT 3.06 mill/uL (4.7-6.1); RED CELL DISTRIBUTION WIDTH 12.4 % (11.6-14.6)
[2020-09-06] MEDS: BLOOD SUGAR DIAGNOSTIC STRIP TEST SCH ×4 (07:10→21:00)
[2020-09-06] MEDS: INSULIN LISPRO 100 UNITS/ML SUBCUT SCH ×4 (07:40→21:00)
[2020-09-06 08:00] VITALS: BP 135/59
[2020-09-06] MEDS ORDERED: CEFTRIAXONE 1 G PREMIX 50 ML IV SCH (08:00)
[2020-09-06] MEDS: CALCIUM ACETATE 667MG CAPSULE PO SCH ×3 (09:03→17:40)
[2020-09-06] MEDS: THIAMINE HCL 100MG TABLET PO SCH (09:03)
[2020-09-06] MEDS: AMLODIPINE 10MG TABLET PO SCH (09:03)
[2020-09-06] MEDS: TAMSULOSIN HCL 0.4MG SR CAPSULE PO SCH (09:04)
[2020-09-06] MEDS: ENOXAPARIN 40MG/0.4ML SYR SUBCUT SCH (09:05)
[2020-09-06] MEDS: CEFTRIAXONE 1,000 MG in DEXTROSE 5% WATER 50 ML IV SCH (10:30)
[2020-09-06 12:00] VITALS: BP 122/31
[2020-09-06 16:00] VITALS: BP 131/35
[2020-09-06 20:00] VITALS: BP 152/50
[2020-09-07] VITALS (7 sets, daily range): BP systolic 133–148; BP diastolic 62–82
[2020-09-07 06:56] LABS: BASOPHILS % 0.8 % (0.0-2.0); EOSINOPHILS % 3.7 % (0.0-5.0); HEMOGLOBIN. 9.2 g/dL (14.0-18.0); LYMPHOCYTES % 17.1 % (20.0-50.0); MEAN CORPUSCULAR HEMOGLOBIN 30.5 pg (28.0-32.0); MEAN CORPUSCULAR VOLUME 89.2 fL (80.0-94.0); MONOCYTES % 5.4 % (2.0-8.0); PLATELET 251 x1000/uL (130-400); RED BLOOD CELL COUNT 3.03 mill/uL (4.7-6.1); RED CELL DISTRIBUTION WIDTH 12.5 % (11.6-14.6)
[2020-09-07] MEDS: INSULIN LISPRO 100 UNITS/ML SUBCUT SCH ×3 (07:08→17:40)
[2020-09-07] MEDS: BLOOD SUGAR DIAGNOSTIC STRIP TEST SCH ×3 (07:08→17:10)
[2020-09-07 08:08] LABS: QFT MITOGEN VALUE 0.96 IU/mL (.); QFT TB GOLD PLUS Negative (Negative); QFT TB1 AG VALUE 0.05 IU/mL (.)
[2020-09-07] MEDS ORDERED: POTASSIUM CHLORIDE 20MEQ TABLET SR PO NR (08:15)
[2020-09-07] MEDS: ENOXAPARIN 40MG/0.4ML SYR SUBCUT SCH (09:00)
[2020-09-07] MEDS: THIAMINE HCL 100MG TABLET PO SCH (09:17)
[2020-09-07] MEDS: CALCIUM ACETATE 667MG CAPSULE PO SCH ×3 (09:17→19:02)
[2020-09-07] MEDS: TAMSULOSIN HCL 0.4MG SR CAPSULE PO SCH (09:20)
[2020-09-07] MEDS: AMLODIPINE 10MG TABLET PO SCH (09:20)
[2020-09-07] MEDS: CEFTRIAXONE 1,000 MG in DEXTROSE 5% WATER 50 ML IV SCH (09:23)
== END 2020-09-07 20:12 | DRG 673 ==
LOC: ER 11:35 → 7WST 14:09 → EDBEDREQSVC 14:10 → EDBEDREQ 14:10 → EDBEDREQTM 14:10 → SUPCPDRO 14:46 → ENRESERV 15:05 → CANRESERV 15:05 → ENRESERV 15:16 → 5EST 08-24 18:35 → 8WST 08-30 03:29
PROVIDERS: ADMIT Internal Medicine Nephrology; ATTEND Internal Medicine Nephrology
PROC: 02HV33Z Insertion of Infusion Device into Superior Vena Cava, Percutaneous Approach (ICD-10-PCS; 2020-08-23)
PROC: B548ZZA Ultrasonography of Superior Vena Cava, Guidance (ICD-10-PCS; 2020-08-23)
PROC: 02HV33Z Insertion of Infusion Device into Superior Vena Cava, Percutaneous Approach (ICD-10-PCS; 2020-08-25)
PROC: B548ZZA Ultrasonography of Superior Vena Cava, Guidance (ICD-10-PCS; 2020-08-25)
PROC: 0JH63XZ Insertion of Tunneled Vascular Access Device into Chest Subcutaneous Tissue and Fascia, Percutaneous Approach (ICD-10-PCS; principal; 2020-09-01)
PROC: 02HV33Z Insertion of Infusion Device into Superior Vena Cava, Percutaneous Approach (ICD-10-PCS; 2020-09-01)
PROC: B518ZZA Fluoroscopy of Superior Vena Cava, Guidance (ICD-10-PCS; 2020-09-01)
PROC: 02PYX3Z Removal of Infusion Device from Great Vessel, External Approach (ICD-10-PCS; 2020-09-01)
PROC: 5A1D70Z Performance of Urinary Filtration, Intermittent, Less than 6 Hours Per Day (ICD-10-PCS; 2020-09-07)
DX: N17.0 Acute kidney failure with tubular necrosis (principal); G93.41 Metabolic encephalopathy; E44.0 Moderate protein-calorie malnutrition; E87.1 Hypo-osmolality and hyponatremia; E87.2 Acidosis; D64.9 Anemia, unspecified; E11.51 Type 2 diabetes mellitus with diabetic peripheral angiopathy without gangrene; I10 Essential (primary) hypertension; N40.1 Benign prostatic hyperplasia with lower urinary tract symptoms; E83.51 Hypocalcemia; L97.529 Non-pressure chronic ulcer of other part of left foot with unspecified severity; E83.39 Other disorders of phosphorus metabolism; G89.29 Other chronic pain; E87.5 Hyperkalemia; Z20.822 Contact with and (suspected) exposure to COVID-19; Z79.4 Long term (current) use of insulin; Z79.899 Other long term (current) drug therapy; Z82.49 Family history of ischemic heart disease and other diseases of the circulatory system; Z87.891 Personal history of nicotine dependence; Z68.36 Body mass index [BMI] 36.0-36.9, adult; Z90.49 Acquired absence of other specified parts of digestive tract
CPT/HCPCS: 36415; 36558; 36589; 36600; 71045; 73630; 74176; 76770; 76937; 77001; 80048; 80053; 80202; 80320; 81003; 82375; 82550; 82805; 82962; 83605; 83615; 83735; 83880; 84100; 84145; 84484; 85025; 86480; 86705; 86706; 86709; 86803; 87106; 87186; 87340; 87426; 93005; 93923; 97162; 97166; 97530; 99152; 99153; 99291; C1725; C1750; C1769; J0610; J0696; J1642; J1644; J1650; J1815; J1940; J2060; J3010; J3370; J3490; J7030; J7040; J7060; Q9967; U0003; G0480; G0500

== ENCOUNTER 2022-01-26 14:21 | Emergency (ER) | payer MEDICAID, MEDICARE ==
[~2022-01-26] VITALS: Ht 170.2 cm; Wt 100.0 kg
[~2022-01-26 14:21] MED LIST changes: +AMLO5TAB88 PO; +FOLI-43 MT; +HYDR100T26 PO; +INSU100I28 SQ
[2022-01-26 14:55] VITALS: BP 128/84
== END 2022-01-26 17:51 | disposition left against medical advice (07) ==
LOC: ER 14:21
DX: Z53.21 Procedure and treatment not carried out due to patient leaving prior to being seen by health care provider (principal)